=== PATIENT | female | born 1990 | race African-American/Black ===

== ENCOUNTER 2016-07-03 17:44 | Emergency (ER) | payer OTHER, MEDICAID ==
[2016-07-03 18:03] VITALS: BP 97/56
[2016-07-03] MEDS ORDERED: FAMOTIDINE 20 MG TABLET PO ONE (18:13)
[2016-07-03] MEDS ORDERED: LIDOCAINE 2% VISCOUS SOLN 20 ML UDCUP PO ONE (18:14)
[2016-07-03] MEDS ORDERED: MAG HYDROX/AL HYDROX/SIMETH SUSP 30 ML UDCUP PO ONE (18:14)
--- NOTE | 2016-07-03 18:18 | ER Document Report ---
ED Medical Screen (RME) - General Chief Complaint: Chest Pain Stated Complaint: CHEST PAIN Notes: I briefly seen and evaluated this patient in my role as physician in triage. I have initiated orders based on this initial evaluation. Please see my colleague' s documentation for complete history, physical, management, diagnosis, and ultimate disposition. My brief evaluation: Patient presents stating that she's had 3 days of sharp burning sensation in her mid chest. She indicates the pain is there constantly. It is worse with any breathing movement. Denies any shortness of breath. No recent cough. No fevers chills or sweats. She indicates that she could be . She denies any history of trauma. No reflux. No leg pain or swelling. Patient also indicates that she's been having some bad dreams lately and in those dreams people that she knows are being killed. She asks me if that means anything. On exam, patient alert and oriented no acute distress vital signs stable patient is afebrile nontoxic appearing. Chest sounds clear and equal bilaterally no wheezes rales or rhonchi. Heart rate and rhythm are normal with no murmurs. Medical decision making: Patient symptoms possibly related to reflux or anxiety. Patient low risk by Well's criteria for PE. She is not hypoxic. Not tachycardic. EKG is normal. We'll check a chest x-ray to evaluate for cardiomegaly or infiltrate. We will give a GI cocktail and Pepcid for symptom relief. Check for . TRAVEL OUTSIDE OF THE [place] IN LAST 30 DAYS: No - Related Data Allergies/Adverse Reactions: No Known Allergies Allergy (Verified 07/03/16 18:05) Home Medications: Current Home Medications No Home Medications 07/03/16 [History] Past Medical History - Past Medical History Cardiac Medical History: Denies: Hx Peripheral Vascular Disease, Hx Pulmonary Embolism Renal/ Medical History: Denies: Hx Peritoneal Dialysis Physical Exam - Vital signs Vitals: Temp Pulse Resp BP Pulse Ox 99.2 F 89 18 97/56 L 100 07/03/16 18:02 07/03/16 18:02 07/03/16 18:02 07/03/16 18:02 07/03/16 18:02 Course - Vital Signs Vital signs: Temp Pulse Resp BP Pulse Ox 99.2 F 89 18 97/56 L 100 07/03/16 18:02 07/03/16 18:02 07/03/16 18:02 07/03/16 18:02 07/03/16 18:02
--- NOTE | 2016-07-03 20:47 | ER Document Report ---
HPI - HPI Patient complains to provider of: chest pain Pain Level: 5 Context: patient is a 26 year old female who presents to the ED complaining of chest pain for 3 days that has been constant and getting worse after eating with associated nausea. she denies any h/o GERD. She has not taken anything for her symptoms. her LMP was 06/07. s/a with and not using protection [place] [facility]: REPORTS: : - DERM Skin Color: Normal Past Medical History - Social History Smoking Status: Never Smoker Family History: Reviewed & Not Pertinent Patient has suicidal ideation: No Patient has homicidal ideation: No - Past Medical History Cardiac Medical History: Denies: Hx Peripheral Vascular Disease, Hx Pulmonary Embolism Renal/ Medical History: Denies: Hx Peritoneal Dialysis Vertical Provider Document - CONSTITUTIONAL Agree With Documented VS: Yes Exam Limitations: No Limitations General Appearance: WD/WN, No Apparent Distress Notes: PHYSICAL EXAM GENERAL: Alert, interacts well. HEAD: Normocephalic, atraumatic. EYES: Pupils equal, round, and reactive to light. Extraocular movements intact. ENT: Oral mucosa moist, tongue midline. NECK: Full range of motion. Supple. Trachea midline. LUNGS: Clear to auscultation bilaterally, no wheezes, rales, or rhonchi. No respiratory distress. HEART: Regular rate and rhythm. No murmurs, gallops, or rubs. ABDOMEN: Soft, nondistended, nontender. No guarding, rebound, or rigidity.. Bowel sounds present in all 4 quadrants. EXTREMITIES: Moves all 4 extremities spontaneously. No edema, radial and dorsalis pedis pulses 2/4 bilaterally. No cyanosis. NEUROLOGICAL: Alert and oriented x4. Normal speech. PSYCH: Normal affect, normal mood. SKIN: Warm, dry, normal turgor. No rashes or lesions noted. - INFECTION CONTROL TRAVEL OUTSIDE OF THE [place] IN LAST 30 DAYS: No - RESPIRATORY O2 Sat by Pulse Oximetry: 100 Course - Re-evaluation Re-evalutation: 07/03/16 21:47 Patient is very well in appearance, vitals within normal limits. Low clinical suspicion for ACS given clinical history, exam, EKG without ST elevations or depressions, and negative initial troponin. History and physical exam is consistent with GERD .HEART score less than or equal to 3. PE also seems unlikely given clinical history, absence of tachycardia or dyspnea. Well's score of 0. CXR without evidence of pneumothorax or pneumonia. No widened mediastinum. Aortic dissection also seems unlikely given history, symmetric pulses, CXR, and vitals. At this time will discharge with return precautions and follow-up recommendations. Verbal discharge instructions given a the bedside and opportunity for questions given. Medication warnings reviewed. Patient is in agreement with this plan and has verbalized understanding of return precautions and the need for primary care follow-up in the next 24-72 hours. - Vital Signs Vital signs: Temp Pulse Resp BP Pulse Ox 99.2 F 89 18 97/56 L 100 07/03/16 18:02 07/03/16 18:02 07/03/16 18:02 07/03/16 18:02 07/03/16 18:02 - Diagnostic Test Radiology reviewed: Image reviewed, Reports reviewed - EKG Interpretation by Me EKG shows normal: Sinus rhythm Rate: Normal Rhythm: NSR When compared to previous EKG there are: Previous EKG unavailable Discharge - Discharge Clinical Impression: Esophageal reflux Condition: Good Disposition: HOME, SELF-CARE Instructions: Reflux Disease (GERD) ([facility]), Prilosec (Acid Pump Inhibitor) ([facility]) Additional Instructions: Please follow up with your primary care physician Prescriptions: Omeprazole Magnesium [Prilosec Otc] 20 mg PO DAILY #15 tablet.
--- NOTE | 2016-07-04 00:10 | EKG REPORT ---
SEVERITY:- NORMAL ECG - SINUS RHYTHM : Confirmed by: Hira Inman MD 04-Jul-2016 00:09:23
== END 2016-07-03 21:20 | disposition home or self-care (01) ==
LOC: ER 17:44
DX: K21.9 Gastro-esophageal reflux disease without esophagitis (principal); R07.9 Chest pain, unspecified; R11.0 Nausea
CPT/HCPCS: 93005; 99285; 81025; 71020; 93010; J3490